=== PATIENT | female | born 1955 | race Caucasian/White ===

== ENCOUNTER 2022-01-16 10:44 | Outpatient (CLI) | payer MEDICARE, OTHER | END 2022-01-16 10:45 | disposition home or self-care (01) | LOC: CSHMAMMO 10:44 | PROVIDERS: ATTEND Physician Assistant | DX: Z13.820 Encounter for screening for osteoporosis (principal); M81.0 Age-related osteoporosis without current pathological fracture; M85.852 Other specified disorders of bone density and structure, left thigh; Z78.0 Asymptomatic menopausal state | CPT/HCPCS: 77080 ==

== ENCOUNTER 2022-02-24 06:28 | Day surgery (SDC) | payer MEDICARE, OTHER ==
[2022-02-21 10:18] VITALS: BMI 34.0
[2022-02-24] MEDS ORDERED: Fentanyl 100 MCG/2 ML VIAL ONE (07:53)
[2022-02-24] MEDS ORDERED: PROPOFOL 20 ML ONE ×2 (07:53→08:45)
[2022-02-24] MEDS ORDERED: Lidocaine 1% PF 5 ML VIAL ONE (07:53)
[2022-02-24] MEDS ORDERED: Glycopyrrolate 0.2 MG/ML 5 ML SYRINGE ONE (09:41)
[2022-02-24] MEDS ORDERED: ePHEDrine Sulfate 50 MG/10 ML VIAL ONE (09:42)
[2022-02-24] MEDS ORDERED: HYDROcodone/Acetaminophen 5/325 mg Tablet ONE (10:17)
== END 2022-02-24 09:43 | disposition home or self-care (01) ==
LOC: CSHSDC 06:28
PROVIDERS: ATTEND Internal Medicine Gastroenterology
PROC: 0DB68ZX Excision of Stomach, Via Natural or Artificial Opening Endoscopic, Diagnostic (ICD-10-PCS; principal; 2022-02-24)
PROC: 0DJD8ZZ Inspection of Lower Intestinal Tract, Via Natural or Artificial Opening Endoscopic (ICD-10-PCS; 2022-02-24)
DX: Z12.11 Encounter for screening for malignant neoplasm of colon (principal); K57.30 Diverticulosis of large intestine without perforation or abscess without bleeding; K64.9 Unspecified hemorrhoids; K21.9 Gastro-esophageal reflux disease without esophagitis; K44.9 Diaphragmatic hernia without obstruction or gangrene; K31.7 Polyp of stomach and duodenum; E66.9 Obesity, unspecified; Z68.34 Body mass index [BMI] 34.0-34.9, adult; Z86.010 Personal history of colon polyps; Z90.710 Acquired absence of both cervix and uterus; Z90.49 Acquired absence of other specified parts of digestive tract
CPT/HCPCS: 88305; J2704; J3010

== ENCOUNTER 2023-04-06 06:58 | Inpatient (IN) | payer MEDICARE, OTHER ==
[2023-04-06] MEDS ORDERED: Morphine 4 MG/ML VIAL ONE ×2 (07:27→12:34)
[2023-04-06] MEDS ORDERED: Ondansetron PF 4 MG/2 ML Vial ONE (07:27)
[2023-04-06 07:57] LABS: Bilirubin Neg (Negative); Blood, Urine Negative (Negative); Clarity Clear (Clear); Glucose, Urine (Dipstick) Normal (Negative); Ketone, Urine Negative (Negative); Leukocyte Negative (Negative); Nitrite Negative (Negative); Protein, Urine (Dipstick) 15 mg/dl (Neg-Trace); Specific Gravity, Urine 1.015 (1.005-1.030); Urobilinogen Normal mg/dL (Less than 2)
[2023-04-06 07:59] LABS: #Basophils 0.1 10x3/uL (0.0-0.2); #Eosinphils 0.2 10x3/uL (0.0-0.5); #Monocytes 1.2 10x3/uL (0.0-1.1); #Neutrophils 7.2 10x3/uL (1.5-8.4); %Basophils 0.9 % (0.0-2.0); %Eosinophils 2.1 % (0.0-6.0); %Lymphocytes 17.9 % (18.0-47.0); %Monocytes 11.1 % (0.0-10.0); %Neutrophils 67.3 % (40.0-75.0); Hematocrit 44.1 % (34.9-44.5); Hemoglobin 15.2 g/dL (12.0-15.5); Mean Corpuscular HGB CONC 34.5 g/dL (32.0-36.0); Mean Corpuscular Volume 84.2 fl (81.6-98.3); Mean Platelet Volume 10.5 fl (7.4-10.4); Platelet Count 318 10x3/uL (150-450); RBC Distribution Width 14.4 % (11.5-14.5); Red Blood Cell (RBC) Count 5.24 10x6/uL (3.90-5.03); White Blood Cell (WBC) Count 10.7 10x3/uL (3.5-10.5)
[2023-04-06 08:13] LABS: CAUTI Indications for Culture Pelvic or flank pain; RBC/HPF 0-3 HPF (0-3); Squamous Epithelial 0-3 HPF (0-3)
[2023-04-06 08:14] LABS: Bacteria/HPF Rare-Few HPF (None Seen); Urine Culture Reflex No No
[2023-04-06 08:20] LABS: ALT (SGPT) 41 U/L (8-55); AST (SGOT) 23 U/L (5-34); Albumin 4.5 g/dL (3.4-4.8); Alkaline Phosphatase 75 U/L (40-110); Anion Gap 15 mmol/L (10-20); BUN (Urea Nitrogen) 9 mg/dL (9.8-20.1); Calc. Creatinine Clearance 0 mL/min (70-130); Calcium 9.4 mg/dL (7.8-10.44); Carbon Dioxide 25 mmol/L (23-31); Chloride 104 mmol/L (98-107); Estimated GFR 84; Globulin 2.5 g/dL (2.4-3.5); Glucose 126 mg/dL (80-115); Lipase 31 U/L (8-78); Potassium 3.4 mmol/L (3.5-5.1); Sodium 141 mmol/L (136-145)
[2023-04-06 08:26] LABS: Troponin I Less than 0.010 ng/mL (< 0.028)
[2023-04-06] MEDS ORDERED: Piperacillin/Tazobactam 3.375 GM VIAL ONE ×2 (09:24→17:25)
[2023-04-06] MEDS ORDERED: Iopamidol 300 61% 100 ML VIAL FS ONE (09:29)
[2023-04-06] MEDS ORDERED: Ondansetron PF 4 MG/2 ML Vial IVP PRN (10:04)
[2023-04-06] MEDS: Sodium Chloride 0.9% 1,000 ML IV SCH ×2 (10:59→21:15)
[2023-04-06] MEDS: Morphine 4 MG/ML VIAL SLOW IVP PRN (12:40)
[2023-04-06] MEDS ORDERED: Acetaminophen 325 MG TAB ONE (15:03)
[2023-04-06] MEDS: Acetaminophen 325 MG TAB PO PRN ×2 (15:07→21:24)
[2023-04-06] MEDS: Piperacillin/Tazobactam 3.375 GM in Sodium Chloride 0.9% 100 ML IVPB SCH ×3 (17:43→21:45)
[2023-04-06 20:39] VITALS: BMI 35.2
[2023-04-06] MEDS: Famotidine/PF 20 mg/2ml Vial SLOW IVP SCH (21:15)
[2023-04-06] MEDS ORDERED: FLU VACC QS2023(65UP)/MF59C/PF 60 MCG/0.5 ML SYRINGE IM ONE (21:30)
[2023-04-07] MEDS: Piperacillin/Tazobactam 3.375 GM in Sodium Chloride 0.9% 100 ML IVPB SCH ×3 (01:46→18:28)
[2023-04-07] MEDS: Morphine 4 MG/ML VIAL SLOW IVP PRN (01:51)
[2023-04-07] MEDS: Acetaminophen 325 MG TAB PO PRN ×3 (01:51→21:02)
[2023-04-07 03:59] LABS: Anion Gap 12 mmol/L (10-20); BUN (Urea Nitrogen) 7 mg/dL (9.8-20.1); Calc. Creatinine Clearance 129 mL/min (70-130); Calcium 8.5 mg/dL (7.8-10.44); Carbon Dioxide 26 mmol/L (23-31); Chloride 106 mmol/L (98-107); Estimated GFR 96; Glucose 97 mg/dL (80-115); Sodium 141 mmol/L (136-145)
[2023-04-07 04:25] LABS: #Basophils 0.1 10x3/uL (0.0-0.2); #Eosinphils 0.4 10x3/uL (0.0-0.5); #Neutrophils 3.8 10x3/uL (1.5-8.4); %Basophils 1.1 % (0.0-2.0); %Eosinophils 4.8 % (0.0-6.0); %Lymphocytes 29.1 % (18.0-47.0); %Monocytes 13.2 % (0.0-10.0); %Neutrophils 51.4 % (40.0-75.0); Hematocrit 38.6 % (34.9-44.5); Hemoglobin 12.9 g/dL (12.0-15.5); Mean Corpuscular HGB CONC 33.4 g/dL (32.0-36.0); Mean Corpuscular Hemoglobin 28.1 pg (27.0-33.0); Mean Corpuscular Volume 84.1 fl (81.6-98.3); Mean Platelet Volume 10.8 fl (7.4-10.4); Platelet Count 277 10x3/uL (150-450); RBC Distribution Width 14.9 % (11.5-14.5); Red Blood Cell (RBC) Count 4.59 10x6/uL (3.90-5.03); White Blood Cell (WBC) Count 7.4 10x3/uL (3.5-10.5)
[2023-04-07] MEDS: Sodium Chloride 0.9% 1,000 ML IV SCH ×2 (05:30→16:58)
[2023-04-07] MEDS: Famotidine/PF 20 mg/2ml Vial SLOW IVP SCH ×2 (09:43→22:34)
[2023-04-07] MEDS ORDERED: Amlodipine 5 MG TAB PO SCH (22:00)
[2023-04-08] MEDS: Piperacillin/Tazobactam 3.375 GM in Sodium Chloride 0.9% 100 ML IVPB SCH ×2 (02:53→10:14)
[2023-04-08] MEDS: Sodium Chloride 0.9% 1,000 ML IV SCH (07:56)
[2023-04-08 08:42] LABS: Anion Gap 15 mmol/L (10-20); BUN (Urea Nitrogen) 6 mg/dL (9.8-20.1); Calc. Creatinine Clearance 129 mL/min (70-130); Carbon Dioxide 23 mmol/L (23-31); Chloride 107 mmol/L (98-107); Estimated GFR 96; Glucose 145 mg/dL (80-115); Potassium 3.2 mmol/L (3.5-5.1); Sodium 142 mmol/L (136-145)
[2023-04-08 09:13] LABS: #Basophils 0.1 10x3/uL (0.0-0.2); #Eosinphils 0.4 10x3/uL (0.0-0.5); #Monocytes 0.7 10x3/uL (0.0-1.1); #Neutrophils 3.5 10x3/uL (1.5-8.4); %Basophils 1.1 % (0.0-2.0); %Eosinophils 5.3 % (0.0-6.0); %Lymphocytes 33.5 % (18.0-47.0); %Neutrophils 49.7 % (40.0-75.0); Hematocrit 40.6 % (34.9-44.5); Hemoglobin 13.8 g/dL (12.0-15.5); Mean Corpuscular Hemoglobin 28.9 pg (27.0-33.0); Mean Corpuscular Volume 84.9 fl (81.6-98.3); Mean Platelet Volume 10.7 fl (7.4-10.4); Platelet Count 299 10x3/uL (150-450); RBC Distribution Width 14.3 % (11.5-14.5); Red Blood Cell (RBC) Count 4.78 10x6/uL (3.90-5.03)
[2023-04-08] MEDS: Famotidine/PF 20 mg/2ml Vial SLOW IVP SCH (10:00)
[2023-04-08] MEDS: Acetaminophen 325 MG TAB PO PRN (12:48)
[2023-04-08] MEDS ORDERED: Amoxicillin/Potassium Clav 875 MG TAB PO SCH (21:00)
[2023-04-08] MEDS ORDERED: Amlodipine 5 MG TAB PO SCH (21:00)
[2023-04-08] MEDS ORDERED: metroNIDAZOLE 500 MG TAB PO SCH (21:30)
[2023-04-08] MEDS ORDERED: LevoFLOXacin 750 MG TAB PO SCH (22:00)
[2023-04-08] MEDS: Sodium Bicarbonate Tab 325 MG TAB PO SCH (22:20)
[2023-04-09] MEDS: Sodium Bicarbonate Tab 325 MG TAB PO SCH (00:34)
[2023-04-09 05:09] LABS: Anion Gap 15 mmol/L (10-20); BUN (Urea Nitrogen) 10 mg/dL (9.8-20.1); Calc. Creatinine Clearance 133 mL/min (70-130); Calcium 9.5 mg/dL (7.8-10.44); Carbon Dioxide 24 mmol/L (23-31); Chloride 105 mmol/L (98-107); Estimated GFR 96; Glucose 112 mg/dL (80-115); Potassium 3.6 mmol/L (3.5-5.1); Sodium 140 mmol/L (136-145)
[2023-04-09 08:15] VITALS: BP 161/82; TEMP 97.4
[2023-04-09] MEDS ORDERED: Potassium Chloride 20 MEQ TAB PO SCH (09:00)
[2023-04-09] MEDS ORDERED: metroNIDAZOLE 500 MG TAB PO SCH (09:00)
[2023-04-09] MEDS ORDERED: Amlodipine 10 MG TAB PO SCH (09:00)
== END 2023-04-09 09:20 | disposition home or self-care (01) | DRG 392 ==
LOC: CSHERS 06:58 → CSHERHOLD 09:23 → CSHPP 20:26
PROVIDERS: ADMIT Internal Medicine; ATTEND Internal Medicine
DX: K57.32 Diverticulitis of large intestine without perforation or abscess without bleeding (principal); N83.8 Other noninflammatory disorders of ovary, fallopian tube and broad ligament; N28.1 Cyst of kidney, acquired; K21.9 Gastro-esophageal reflux disease without esophagitis; G43.909 Migraine, unspecified, not intractable, without status migrainosus; E66.9 Obesity, unspecified; I10 Essential (primary) hypertension; Z68.35 Body mass index [BMI] 35.0-35.9, adult; Z91.041 Radiographic dye allergy status; Z79.899 Other long term (current) drug therapy; Z90.710 Acquired absence of both cervix and uterus; Z90.49 Acquired absence of other specified parts of digestive tract; Z98.890 Other specified postprocedural states
CPT/HCPCS: 36415; 74177; 80048; 80053; 81001; 83690; 83735; 84484; 85025; 93005; 96361; 96365; 96375; J2270; J2405; J2543; J3490; J7050; Q9967; S0028

== ENCOUNTER 2024-01-22 11:00 | Outpatient (CLI) | payer MEDICARE, OTHER | END 2024-01-22 11:01 | disposition home or self-care (01) | LOC: CSHULT 11:00 | PROVIDERS: ATTEND Physician Assistant | DX: R22.42 Localized swelling, mass and lump, left lower limb (principal); D17.24 Benign lipomatous neoplasm of skin and subcutaneous tissue of left leg | CPT/HCPCS: 76999 ==

== ENCOUNTER 2024-03-10 08:47 | Outpatient (CLI) | payer MEDICARE, OTHER | END 2024-03-10 08:48 | disposition home or self-care (01) | LOC: CSHMAMMO 08:47 | PROVIDERS: ATTEND Physician Assistant | DX: Z78.0 Asymptomatic menopausal state (principal); M81.0 Age-related osteoporosis without current pathological fracture; M85.851 Other specified disorders of bone density and structure, right thigh; M85.852 Other specified disorders of bone density and structure, left thigh | CPT/HCPCS: 77080 ==